=== PATIENT | male | born 1950 | race Caucasian/White ===

== ENCOUNTER 2016-12-10 13:17 | Inpatient (IN) | payer BC, MEDICARE ==
[~2016-12-10] VITALS: Ht 167.6 cm; Wt 75.0 kg
[~2016-12-10 13:17] MED LIST: AMOXICILLIN500 MG PO; ATIVAN0.5 MG PO; FENTANYL50 MCG/HR TD; FLEXERIL PO; FLUOXETINE10 M2 PO; FLUOXETINE10 MG PO; NAPROSYN500 MG PO; PERCOCET 5/325M1 TAB PO; SYNTHROID75 MCG PO; TRAZODONE HCL50 MG PO; TRAZODONE50 MG PO
[2016-12-10 14:20] LABS: HEMATOCRIT 45.6 % (39.0-50.0); HEMOGLOBIN 14.9 g/dl (14.0-18.0); IMMATURE GRANULOCYTES 0.2 % (0.0-1.0); MEAN CELL VOLUME 89.9 fL CALC (80.0-100.0); MEAN CORPUSCULAR HGB 29.4 pG CALC (26.0-32.0); MEAN CORPUSCULAR HGB CONC 32.7 g/L CALC (32.0-36.0); NEUT# 8.84 thou/uL (1.82-7.42); RED BLOOD COUNT 5.07 mill/uL (4.70-6.10)
[2016-12-10 14:50] LABS: ALBUMIN 4.8 g/dL (3.2-5.0); ALKALINE PHOSPHATASE 55 u/l (38-126); AMYLASE 69 u/l (30-110); ANION GAP 18 (6-22 (CALC)); BILIRUBIN, TOTAL 0.6 mg/dL (0.0-1.4); BUN 18 mg/dL (8-23); BUN/CREATININE RATIO 12 (12-20 (CALC)); CALCIUM 10.4 mg/dL (8.4-10.2); CARBON DIOXIDE 30 mmol/l (22-30); CHLORIDE 99 mmol/l (95-108); CREATININE 1.4 mg/dL (0.7-1.3); GFR 51 ML/MIN (>=60 (CALC)); GFR FOR AFR.AMER. > 60 ML/MIN (>=60 (CALC)); GLUCOSE 126 mg/dL (82-115); LIPASE 45 u/l (23-300); POTASSIUM 4.3 mmol/l (3.5-5.1); SGOT/AST 30 u/l (19-48); SGPT/ALT 28 u/l (11-66); SODIUM 143 mmol/l (137-146); TOTAL PROTEIN 8.7 g/dL (6.3-8.2)
[2016-12-10] MEDS ORDERED: ATORVASTATIN CA10 MG PO (15:39)
[2016-12-10] MEDS ORDERED: CLONAZEPAM0.5 MG PO (15:43)
[2016-12-10 17:00] VITALS: BP 127/80
[2016-12-10 20:03] VITALS: BP 110/68
[2016-12-11] VITALS (8 sets, daily range): BP systolic 93–180; BP diastolic 50–94
[2016-12-11 00:42] LABS: URINE BILIRUBIN - DIPSTICK NEGATIVE (NEGATIVE); URINE BLOOD DIPSTICK NEGATIVE (NEGATIVE); URINE CLARITY CLOUDY; URINE COLOR YELLOW; URINE GLUCOSE - DIPSTICK NEGATIVE (NEGATIVE); URINE KETONE NEGATIVE (NEGATIVE); URINE LEUK ESTERASE NEGATIVE (NEGATIVE); URINE NITRITE - DIPSTICK NEGATIVE (Negative); URINE PROTEIN - DIPSTICK NEGATIVE (NEG-TRACE); URINE UROBILINOGEN - DIPSTICK 0.2 E.U./dL (0.2)
[2016-12-11 07:07] LABS: HEMOGLOBIN 13.3 g/dl (14.0-18.0); MEAN CELL VOLUME 89.3 fL CALC (80.0-100.0); MEAN CORPUSCULAR HGB CONC 32.4 g/L CALC (32.0-36.0); RED BLOOD COUNT 4.59 mill/uL (4.70-6.10); RED CELL DISTRI WIDTH 14.2 % (11.5-15.5)
[2016-12-11 07:33] LABS: ANION GAP 11 (6-22 (CALC)); BUN 16 mg/dL (8-23); BUN/CREATININE RATIO 13 (12-20 (CALC)); CALCIUM 8.7 mg/dL (8.4-10.2); CARBON DIOXIDE 28 mmol/l (22-30); CHLORIDE 104 mmol/l (95-108); CREATININE 1.3 mg/dL (0.7-1.3); GFR 56 ML/MIN (>=60 (CALC)); GFR FOR AFR.AMER. > 60 ML/MIN (>=60 (CALC)); GLUCOSE 93 mg/dL (82-115); POTASSIUM 4.4 mmol/l (3.5-5.1); SODIUM 139 mmol/l (137-146)
[2016-12-11 07:46] LABS: INTERNATIONAL NORMALIZED RATIO 1.1 RATIO (0.7-1.3); PROTHROMBIN TIME 11.8 SECONDS (9.0-12.5)
== END 2016-12-11 19:10 | disposition home or self-care (01) | DRG 694 ==
LOC: ENPENDDIS → ED 13:17 → ED-I 13:35 → ED 16:18 → MS2 16:19
PROVIDERS: Emergency Medicine; ADMIT Internal Medicine; ATTEND Internal Medicine
PROC: 0T768DZ Dilation of Right Ureter with Intraluminal Device, Via Natural or Artificial Opening Endoscopic (ICD-10-PCS; principal; 2016-12-11)
PROC: BT1D1ZZ Fluoroscopy of Right Kidney, Ureter and Bladder using Low Osmolar Contrast (ICD-10-PCS; 2016-12-11)
DX: N13.2 Hydronephrosis with renal and ureteral calculous obstruction (principal); N32.89 Other specified disorders of bladder; E78.00 Pure hypercholesterolemia, unspecified; F41.9 Anxiety disorder, unspecified; E03.9 Hypothyroidism, unspecified; G89.29 Other chronic pain; M54.5 Low back pain; G25.81 Restless legs syndrome; N28.9 Disorder of kidney and ureter, unspecified; N40.0 Benign prostatic hyperplasia without lower urinary tract symptoms; Z87.442 Personal history of urinary calculi

== ENCOUNTER 2016-12-30 10:58 | Day surgery (SDC) | payer BC ==
[~2016-12-30] VITALS: Ht 167.6 cm; Wt 74.4 kg
[~2016-12-30 10:58] MED LIST changes: +ATORVASTATIN CA10 MG PO; +CLONAZEPAM0.5 MG PO
[2016-12-30 11:39] LABS: HEMATOCRIT 41.8 % (39.0-50.0); HEMOGLOBIN 13.5 g/dl (14.0-18.0); IMMATURE GRANULOCYTES 0.3 % (0.0-1.0); MEAN CELL VOLUME 90.1 fL CALC (80.0-100.0); MEAN CORPUSCULAR HGB 29.1 pG CALC (26.0-32.0); MEAN CORPUSCULAR HGB CONC 32.3 g/L CALC (32.0-36.0); NEUT# 4.28 thou/uL (1.82-7.42); RED BLOOD COUNT 4.64 mill/uL (4.70-6.10); RED CELL DISTRI WIDTH 14.4 % (11.5-15.5)
[2016-12-30 11:49] LABS: ALBUMIN 4.6 g/dL (3.2-5.0); ALKALINE PHOSPHATASE 39 u/l (38-126); ANION GAP 12 (6-22 (CALC)); BILIRUBIN, TOTAL 0.7 mg/dL (0.0-1.4); BUN 15 mg/dL (8-23); BUN/CREATININE RATIO 17 (12-20 (CALC)); CALCIUM 9.7 mg/dL (8.4-10.2); CARBON DIOXIDE 32 mmol/l (22-30); CHLORIDE 101 mmol/l (95-108); CREATININE 0.9 mg/dL (0.7-1.3); GFR > 60 ML/MIN (>=60 (CALC)); GFR FOR AFR.AMER. > 60 ML/MIN (>=60 (CALC)); GLUCOSE 102 mg/dL (82-115); POTASSIUM 4.5 mmol/l (3.5-5.1); SGOT/AST 31 u/l (19-48); SGPT/ALT 30 u/l (11-66); SODIUM 141 mmol/l (137-146); TOTAL PROTEIN 7.7 g/dL (6.3-8.2)
[2016-12-30] MEDS ORDERED: BACLOFEN10 MG PO (14:51)
[2016-12-30] MEDS ORDERED: TAMSULOSIN0.4 MG PO (14:51)
[2016-12-30] MEDS ORDERED: DOCUSATE CAL240 MG PO (14:51)
[2016-12-30] MEDS ORDERED: PYRIDIUM200 MG PO (14:51)
[2016-12-30] MEDS ORDERED: TORADOL PO (14:51)
[2016-12-30 15:51] VITALS: BP 129/69
== END 2016-12-30 17:25 | disposition home or self-care (01) | DRG 660 ==
LOC: ORM 10:58
PROVIDERS: ATTEND Urology
PROC: 0TC68ZZ Extirpation of Matter from Right Ureter, Via Natural or Artificial Opening Endoscopic (ICD-10-PCS; principal; 2016-12-30)
PROC: 0TC08ZZ Extirpation of Matter from Right Kidney, Via Natural or Artificial Opening Endoscopic (ICD-10-PCS; 2016-12-30)
PROC: 0T768DZ Dilation of Right Ureter with Intraluminal Device, Via Natural or Artificial Opening Endoscopic (ICD-10-PCS; 2016-12-30)
PROC: BT1DZZZ Fluoroscopy of Right Kidney, Ureter and Bladder (ICD-10-PCS; 2016-12-30)
DX: N13.2 Hydronephrosis with renal and ureteral calculous obstruction (principal)
CPT/HCPCS: J2710; Q9967

== ENCOUNTER 2017-02-10 09:55 | Emergency (ER) | payer BC ==
[~2017-02-10] VITALS: Ht 167.6 cm; Wt 81.0 kg
[~2017-02-10 09:55] MED LIST changes: +BACLOFEN10 MG PO; +DOCUSATE CAL240 MG PO; +PYRIDIUM200 MG PO; +TAMSULOSIN0.4 MG PO; +TORADOL PO
[2017-02-10 10:32] LABS: HEMATOCRIT 40.6 % (39.0-50.0); HEMOGLOBIN 13.3 g/dl (14.0-18.0); IMMATURE GRANULOCYTES 0.5 % (0.0-1.0); MEAN CORPUSCULAR HGB 29.8 pG CALC (26.0-32.0); MEAN CORPUSCULAR HGB CONC 32.8 g/L CALC (32.0-36.0); NEUT# 4.8 thou/uL (1.82-7.42); RED BLOOD COUNT 4.46 mill/uL (4.70-6.10); RED CELL DISTRI WIDTH 14.6 % (11.5-15.5)
[2017-02-10] MEDS ORDERED: VITAMIN D22000 UNIT PO (10:38)
[2017-02-10] MEDS ORDERED: COLACE100 MG PO (10:40)
[2017-02-10 10:58] LABS: ALBUMIN 4.8 g/dL (3.2-5.0); ALKALINE PHOSPHATASE 45 u/l (38-126); AMYLASE 55 u/l (30-110); ANION GAP 15 (6-22 (CALC)); BILIRUBIN, TOTAL 0.7 mg/dL (0.0-1.4); BUN 16 mg/dL (8-23); BUN/CREATININE RATIO 18 (12-20 (CALC)); CALCIUM 10.1 mg/dL (8.4-10.2); CARBON DIOXIDE 30 mmol/l (22-30); CHLORIDE 101 mmol/l (95-108); CREATININE 0.9 mg/dL (0.7-1.3); GFR > 60 ML/MIN (>=60 (CALC)); GFR FOR AFR.AMER. > 60 ML/MIN (>=60 (CALC)); GLUCOSE 104 mg/dL (82-115); LIPASE 57 u/l (23-300); POTASSIUM 4.9 mmol/l (3.5-5.1); SGOT/AST 28 u/l (19-48); SGPT/ALT 38 u/l (11-66); SODIUM 141 mmol/l (137-146)
[2017-02-10 11:10] LABS: MYOGLOBIN 31 ng/mL (0 - 121)
[2017-02-10 12:06] LABS: URINE BILIRUBIN - DIPSTICK NEGATIVE (NEGATIVE); URINE BLOOD DIPSTICK NEGATIVE (NEGATIVE); URINE CLARITY CLEAR; URINE COLOR YELLOW; URINE GLUCOSE - DIPSTICK NEGATIVE (NEGATIVE); URINE KETONE NEGATIVE (NEGATIVE); URINE LEUK ESTERASE NEGATIVE (NEGATIVE); URINE NITRITE - DIPSTICK NEGATIVE (Negative); URINE PH 6.5 (4.5-8.0); URINE PROTEIN - DIPSTICK NEGATIVE (NEG-TRACE); URINE UROBILINOGEN - DIPSTICK 0.2 E.U./dL (0.2)
[2017-02-10] MEDS ORDERED: TAMSULOSIN0.4 MG PO (13:42)
[2017-02-10] MEDS ORDERED: CIPROFLOXACN500 MG PO (13:42)
[2017-02-10 14:07] VITALS: BP 113/64
== END 2017-02-10 14:07 | disposition home or self-care (01) | DRG 694 ==
LOC: ED 09:55
PROVIDERS: Emergency Medicine
DX: N13.2 Hydronephrosis with renal and ureteral calculous obstruction (principal); F41.9 Anxiety disorder, unspecified; G25.81 Restless legs syndrome; M48.00 Spinal stenosis, site unspecified; Z87.442 Personal history of urinary calculi

== ENCOUNTER 2018-06-28 09:40 | Emergency (ER) | payer BC ==
[~2018-06-28] VITALS: Ht 162.6 cm; Wt 70.5 kg
[~2018-06-28 09:40] MED LIST changes: +CIPROFLOXACN500 MG PO; +COLACE100 MG PO; +VITAMIN D22000 UNIT PO
[2018-06-28] MEDS ORDERED: TORADOL PO (11:12)
[2018-06-28] MEDS ORDERED: MEDDOSEPAK PO (11:12)
[2018-06-28 11:19] VITALS: BP 116/71
== END 2018-06-28 11:47 | disposition home or self-care (01) | DRG 556 ==
LOC: ED 09:40
DX: M25.551 Pain in right hip (principal); G89.29 Other chronic pain; M16.11 Unilateral primary osteoarthritis, right hip; M47.816 Spondylosis without myelopathy or radiculopathy, lumbar region

== ENCOUNTER 2019-06-27 14:50 | Emergency (ER) | payer BC ==
[~2019-06-27] VITALS: Ht 162.6 cm; Wt 72.0 kg
[~2019-06-27 14:50] MED LIST changes: +ALFUZOSIN HCL E10 MG PO; +DULOXETINE HCL30 MG; +MEDDOSEPAK PO; +TESTOSTERON200 MG/M1; +VITAMIN B121000 MCG PO
[2019-06-27] MEDS ORDERED: DONEPEZIL5 MG PO (15:16)
[2019-06-27] MEDS ORDERED: NAPROXEN375 MG PO (15:16)
[2019-06-27 15:25] VITALS: BP 124/75
== END 2019-06-27 17:25 | disposition home or self-care (01) | DRG 605 ==
LOC: ED 14:50
DX: S70.01XA Contusion of right hip, initial encounter (principal); W17.89XA Other fall from one level to another, initial encounter